=== PATIENT | female | born 1965 | race Caucasian/White ===

== ENCOUNTER 2024-01-20 08:00 | Emergency (ER) | payer OTHER, BC ==
[2024-01-20] MEDS ORDERED: Albuterol 2.5 MG (0.5 mL) NEB ONE (09:03)
[2024-01-20] MEDS ORDERED: Albuterol 2.5 MG (3 mL) NEB ONE (09:03)
[2024-01-20] MEDS ORDERED: Ipratropium Bromide 2.5 ml Neb ONE (09:03)
[2024-01-20 09:38] LABS: #Basophils 0.05 10x3/uL (0.0-0.2); %Basophils 0.7 % (0.0-1.0); %Eosinophils 1.5 % (0.0-10.0); %Lymphocytes 28.8 % (21.0-51.0); %Monocytes 7.1 % (0.0-10.0); %Neutrophils 61.6 % (42.0-75.0); Hematocrit 40.5 % (36.0-47.0); Hemoglobin 13.9 g/dL (12.0-16.0); Mean Corpuscular HGB CONC 34.3 g/dL (32.0-36.0); Mean Corpuscular Hemoglobin 32.8 pg (27.0-31.0); Mean Corpuscular Volume 95.5 fL (78.0-98.0); Mean Platelet Volume 9.5 fL (7.4-10.4); Platelet Count 386 10x3/uL (130-400); RBC Distribution Width 13.9 % (11.5-14.5); Red Blood Cell (RBC) Count 4.24 mill/uL (4.20-5.40)
[2024-01-20] MEDS ORDERED: Dexamethasone 10 MG/ML VIAL ONE (09:43)
[2024-01-20 09:57] LABS: ALT (SGPT) 80 U/L (8-55); AST (SGOT) 70 U/L (5-34); Albumin 3.5 g/dL (3.5-5.0); Alkaline Phosphatase 70 U/L (40-110); Anion Gap 13 mmol/L (10-20); BUN (Urea Nitrogen) 8 mg/dL (9.8-20.1); Bilirubin, Total 0.6 mg/dL (0.2-1.2); Calc. Creatinine Clearance 0 mL/min (70-130); Calcium 9.4 mg/dL (7.8-10.44); Carbon Dioxide 26 mmol/L (22-29); Chloride 106 mmol/L (98-107); Estimated GFR 94; Globulin 3.4 g/dL (2.4-3.5); Glucose 84 mg/dL (70-105); Protein, Total 6.9 g/dL (6.0-8.3); Sodium 141 mmol/L (136-145)
[2024-01-20 10:40] LABS: Troponin I Less than 0.010 ng/mL (< 0.028)
[2024-01-20 11:31] LABS: Acetaminophen Less than 10 mcg/mL (10.0-30.0); Alcohol Less than 10.0 mg/dL (Less than 10); Salicylate Less than 8.0 mg/dL (15.0-30.0)
== END 2024-01-20 15:12 ==
LOC: ERS 08:00
DX: R07.89 Other chest pain (principal); R45.851 Suicidal ideations; I10 Essential (primary) hypertension; F17.210 Nicotine dependence, cigarettes, uncomplicated
CPT/HCPCS: 36415; 71046; 80053; 80307; 84443; 84484; 85025; 93005; 94640; 94760; 96374; J1100; J7611